=== PATIENT | male | born 1965 | race Caucasian/White ===

== ENCOUNTER 2019-05-04 03:35 | Observation (INO) | payer SELFPAY ==
[2019-05-04 04:30] LABS: ABSOLUTE BASOPHILS # (AUTO) 0.1 10^3/uL (0.0-0.2); ABSOLUTE EOSINOPHILS # (AUTO) 0.3 10^3/uL (0.0-0.6); ABSOLUTE LYMPHOCYTES (AUTO) 1.7 10^3/uL (0.5-4.7); ABSOLUTE MONOCYTES (AUTO) 0.6 10^3/uL (0.1-1.4); ABSOLUTE NEUT (AUTO) 10.3 10^3/uL (1.7-8.2); BASOPHILS % (AUTO) 0.7 % (0-2); EOSINOPHILS % (AUTO) 2.6 % (0-6); HEMATOCRIT 40.5 % (37.9-51.0); LYMPHOCYTES % (AUTO) 13.4 % (13-45); MEAN CORPUSCULAR HEMOGLOBIN 30.2 pg (27.0-33.4); MEAN CORPUSCULAR HGB CONC 34.6 g/dL (32.0-36.0); MEAN CORPUSCULAR VOLUME 87 fl (80-97); MONOCYTES % (AUTO) 4.3 % (3-13); PLATELET COUNT 333 10^3/uL (150-450); RED BLOOD COUNT 4.64 10^6/uL (4.35-5.55); RED CELL DISTRIBUTION WIDTH 13.2 % (11.5-14.0); TOTAL CELLS COUNTED % (AUTO) 100 %
--- NOTE | 2019-05-04 04:43 | RADIOLOGY REPORT (SQ) ---
CLINICAL HISTORY: chest burning COMPARISON: None. TECHNIQUE: XR CHEST 2 VIEWS 05/04/2019 12:00 AM COUNSELING PSYCHOLOGIST FINDINGS: Cardiac silhouette is normal in size. Lungs are clear without consolidation, atelectasis, mass or edema. There is no pleural effusion. There is no pneumothorax. There are no acute osseous findings. IMPRESSION: Clear lungs.
[2019-05-04] MEDS ORDERED: LIDOCAINE 2% VISCOUS SOLN 15 ML UDCUP PO ONE (04:51)
[2019-05-04] MEDS ORDERED: MAG HYDROX/AL HYDROX/SIMETH SUSP 30 ML UDCUP PO ONE (04:51)
[2019-05-04] MEDS ORDERED: METOCLOPRAMIDE HCL ORAL SOLN 10 MG/10 ML UDCUP PO ONE (04:51)
[2019-05-04 04:53] LABS: ALBUMIN 4.3 g/dL (3.5-5.0); ALKALINE PHOSPHATASE 68 U/L (38-126); ANION GAP 8 (5-19); ASPARTATE AMINO TRANSFERASE 27 U/L (17-59); BILIRUBIN,DIRECT 0.3 mg/dL (0.0-0.4); BILIRUBIN,TOTAL 0.3 mg/dL (0.2-1.3); BLOOD UREA NITROGEN 20 mg/dL (7-20); CALCIUM 9.5 mg/dL (8.4-10.2); CARBON DIOXIDE 31 mmol/L (22-30); CHLORIDE 104 mmol/L (98-107); CREATINE KINASE 83 U/L (55-170); GLUCOSE 106 mg/dL (75-110); POTASSIUM 4.4 mmol/L (3.6-5.0); TOTAL PROTEIN 7.8 g/dL (6.3-8.2)
--- NOTE | 2019-05-04 04:53 | ER Document Report ---
ED GI/ - General Chief Complaint: Epigastric Pain Stated Complaint: CHEST AND STOMACH PAIN Time Seen by Provider: 05/04/19 04:45 Notes: Patient is a 53-year-old male that comes emergency department for chief complaint of burning in his epigastric area, he states that he cannot get comfortable, he states that he is frequently belching, has trouble lying down. He denies vomiting, chest pain, difficulty breathing, fever, injury. He denies recent alcohol within the past month, he does state that he had similar symptoms a few days ago but this resolved with Gas-X and baking soda mixed with water, he tried this again tonight and it did not resolve yet so he came in for evaluation. He denies any surgeries, he takes no daily medications, he smokes. He reports infrequent alcohol and denies recreational drugs. He states his father had CAD when asked. TRAVEL OUTSIDE OF THE [place] IN LAST 30 DAYS: No - Related Data Allergies/Adverse Reactions: Sulfa (Sulfonamide Antibiotics) Allergy (Verified 03/24/16 13:36) Home Medications: generic nexium. advil cold and sinus Past Medical History - General Information source: Patient - Social History Smoking Status: Current Every Day Smoker Frequency of alcohol use: Occasional Drug Abuse: None Lives with: Family Family History: Reviewed & Not Pertinent Patient has suicidal ideation: No Patient has homicidal ideation: No - Immunizations Immunizations up to date: Yes Hx Diphtheria, Pertussis, Tetanus Vaccination: Yes Review of Systems - Review of Systems Constitutional: No symptoms reported EENT: No symptoms reported Cardiovascular: No symptoms reported Respiratory: No symptoms reported Gastrointestinal: See HPI Genitourinary: No symptoms reported Male Genitourinary: No symptoms reported Musculoskeletal: No symptoms reported Skin: No symptoms reported Hematologic/Lymphatic: No symptoms reported Neurological/Psychological: No symptoms reported Physical Exam - Vital signs Vitals: Temp Pulse Resp BP Pulse Ox 97.5 F 69 14 151/83 H 98 05/04/19 03:39 05/04/19 03:39 05/04/19 03:39 05/04/19 03:39 05/04/19 03:39 - Notes Notes: GENERAL: Patient alert, cooperative, pacing, appears to be in pain HEAD: Normocephalic, atraumatic. EYES: Pupils equal, round, and reactive to light. Extraocular movements intact. ENT: Oral mucosa moist, tongue midline. Oropharynx unremarkable. Airway patent. LUNGS: Clear to auscultation bilaterally, no wheezes, rales, or rhonchi. No respiratory distress. HEART: Regular rate and rhythm. No murmur ABDOMEN: Tender in the upper abdomen generally, difficult to examine initially because of patient compliance GENITOURINARY: Deferred EXTREMITIES: Moves all 4 extremities spontaneously. No edema, normal radial and dorsalis pedis pulses bilaterally. No cyanosis. BACK: no cervical, thoracic, lumbar midline tenderness. No saddle anesthesia, normal distal neurovascular exam. Moves all extremities in full range of motion. NEUROLOGICAL: Alert and oriented x3. Normal speech. Cranial nerves II through XII grossly intact. PSYCH: Restless SKIN: Warm, dry, normal turgor. No rashes or lesions noted. Course - Re-evaluation Re-evalutation: Patient pacing, stating he cannot lie down. Difficult to examine his abdomen but he does not appear to be in severe distress. Vital signs generally unremarkable. Chest x-ray, EKG, troponin, CBC, chemistry, lipase reviewed from triage. This shows mild leukocytosis, otherwise generally unremarkable. Patient has not improved after GI cocktail. Patient more compliant now, lay down, has definite tenderness in the right upper quadrant and epigastric area. Given pain medication, kept n.p.o., ultrasound will be performed. Ultrasound concerning for acute cholecystitis. Discussed with patient, started on Zosyn, I called and spoke with Dr. Álvarez who states he will evaluate the patient. Dr. Álvarez evaluated the patient and is accepting to the surgical service. - Vital Signs Vital signs: Temp Pulse Resp BP Pulse Ox 98.0 F 69 14 151/83 H 99 05/04/19 06:44 05/04/19 06:44 05/04/19 03:39 05/04/19 03:39 05/04/19 06:44 - Laboratory Result Diagrams: 05/04/19 04:15 05/04/19 04:15 Laboratory results interpreted by me: 05/04/19 05/04/19 04:15 04:15 WBC 13.0 H Absolute Neuts (auto) 10.3 H Seg Neutrophils % 79.0 H Carbon Dioxide 31 H Discharge - Discharge Clinical Impression: Cholelithiasis and acute cholecystitis without obstruction Condition: Stable Disposition: ADMITTED OBSERVATION Admitting Provider: Surgicalist Unit Admitted: Surgical Floor
[2019-05-04 05:04] LABS: CREATINE KINASE MB 0.53 ng/mL (<4.55)
[2019-05-04 05:07] LABS: TROPONIN I < 0.012 ng/mL
[2019-05-04] MEDS ORDERED: MORPHINE SULFATE 10 MG/ML INJ IV ONE (05:49)
[2019-05-04] MEDS ORDERED: HYDROMORPHONE HCL INJ/PF 2 MG/ML AMPULE IV ONE ×2 (06:36→08:45)
--- NOTE | 2019-05-04 07:02 | RADIOLOGY REPORT (SQ) ---
EXAM DESCRIPTION: US ABDOMEN LIMITED COMPLETED DATE/TME: 05/04/2019 05:49 CLINICAL HISTORY: 53 years, Male, RUQ and epigastric pain COMPARISON: 02/21/2016 TECHNIQUE: Grayscale and color images of the abdomen were obtained LIMITATIONS: None. FINDINGS: The visualized portions of the pancreas and abdominal aorta are unremarkable. The liver is normal in size, shape, and echotexture. The liver measures 13.9 cm. The main portal vein demonstrates normal hepatopedal flow. Cholelithiasis with sludge is noted. Gallbladder wall is thickened measuring up to 5 mm in thickness. A positive sonographic Jim sign was elicited. The common bile duct measures up to 6 mm in diameter. The right kidney measures 11.2 x 5.7 x 5.8 cm. There is a 3.8 x 2.9 x 2.7 cm cyst. IMPRESSION: Cholelithiasis with gallbladder wall thickening and a positive sonographic Jim sign, concerning for acute cholecystitis. copyright 2010 [employer]- All Rights Reserved
[2019-05-04] MEDS ORDERED: PIPERACILLIN/TAZOBACTAM 3.375 GM VIAL IV ONE ×2 (07:06→09:10)
[2019-05-04] MEDS ORDERED: NORMAL SALINE 1000 ML 1,000 ML IV ONE (07:06)
--- NOTE | 2019-05-04 08:29 | PDOC H&P ---
History of Present Illness Admission Date/PCP: May 04, 2019 Patient complains of: Epigastric and right upper quadrant pain History of Present Illness: RM MOSS is a 53 year old male, healthy, smoker, with a 10-hour history of epigastric and right upper quadrant pain, intense nausea, who presents emergency room with above symptoms this morning early. An ultrasound of the gallbladder was done revealing cholelithiasis and thickening of the gallbladder wall as per acute cholecystitis. His blood work reveals a mild leukocytosis of 13,000. Past Medical History Cardiac Medical History: Reports: Hypertension GI Medical History: Reports: Gastroesophageal Reflux Disease Social History Smoking Status: Current Every Day Smoker Family History Family History: Reviewed & Not Pertinent Parental Family History Reviewed: No Children Family History Reviewed: No Sibling(s) Family History Reviewed.: No Medication/Allergy Home Medications: Cyclobenzaprine HCl [Flexeril 10 Mg Tablet] 10 mg PO TIDP PRN #20 tablet 10/02/15 Oxycodone HCl/Acetaminophen [Percocet 10-325 Mg Tablet] 1 each PO Q4HP PRN #15 tablet 10/02/15 Oxycodone HCl/Acetaminophen [Percocet 5-325 mg Tablet] 1 - 2 tab PO Q4H PRN #15 tablet 03/24/16 Allergies/Adverse Reactions: Sulfa (Sulfonamide Antibiotics) Allergy (Verified 03/24/16 13:36) Physical Exam Vital Signs: Temp Pulse Resp BP Pulse Ox 98.0 F 69 14 151/83 H 99 05/04/19 06:44 05/04/19 06:44 05/04/19 03:39 05/04/19 03:39 05/04/19 06:44 Intake & Output 05/03/19 05/04/19 05/05/19 06:59 06:59 06:59 Weight 78.2 kg General appearance: PRESENT: mild distress, thin, well-developed Head exam: PRESENT: atraumatic Eye exam: PRESENT: EOMI, PERRLA Mouth exam: PRESENT: dry mucosa, neck supple, tongue midline Teeth exam: PRESENT: poor dentation Neck exam: PRESENT: full ROM Respiratory exam: PRESENT: clear to auscultation gabriela Cardiovascular exam: PRESENT: RRR GI/Abdominal exam: PRESENT: hypoactive bowel sounds, Jim's sign - Positive, soft, tenderness - Right upper quadrant with guarding Rectal exam: PRESENT: deferred Extremities exam: PRESENT: full ROM Musculoskeletal exam: PRESENT: full ROM Neurological exam: PRESENT: alert, awake, oriented to time, CN II-XII grossly intact Psychiatric exam: PRESENT: appropriate affect Skin exam: PRESENT: warm Results Laboratory Results: 05/04/19 04:15 05/04/19 04:15 05/04/19 05/04/19 05/04/19 04:15 04:15 04:15 WBC 13.0 H RBC 4.64 Hgb 14.0 Hct 40.5 MCV 87 MCH 30.2 MCHC 34.6 RDW 13.2 Plt Count 333 Seg Neutrophils % 79.0 H Sodium 143.1 Potassium 4.4 Chloride 104 Carbon Dioxide 31 H Anion Gap 8 BUN 20 Creatinine 1.00 Est GFR ( Amer) > 60 Glucose 106 Calcium 9.5 Total Bilirubin 0.3 AST 27 Alkaline Phosphatase 68 Total Protein 7.8 Albumin 4.3 Lipase 131.7 05/04/19 05/04/19 04:15 04:15 Creatine Kinase 83 CK-MB (CK-2) 0.53 Troponin I < 0.012 Impressions: Chest X-Ray 05/04/19 00:00 IMPRESSION: Clear lungs. Abdomen Ultrasound 05/04/19 05:49 IMPRESSION: Cholelithiasis with gallbladder wall thickening and a positive sonographic Jim sign, concerning for acute cholecystitis. copyright 2011 [employer]- All Rights Reserved Assessment & Plan - Diagnosis (1) Cholelithiasis and acute cholecystitis without obstruction Is this a current diagnosis for this admission?: Yes - Plan Summary Plan Summary: Assessment: Epigastric and right upper quadrant pain Blood work shows slight elevated white blood cell count 13,000 Normal complete metabolic profile Ultrasound of the abdomen demonstrates thickening of the gallbladder wall with stones as per acute cholecystitis with cholelithiasis Negative past medical history Plan: N.p.o. IV fluid bolus normal saline 1 L plus normal saline 150 m/h IV antibiotics Zosyn 3.375 g IV piggyback x1 Plan laparoscopically cystectomy, possible open, possible cholangiogram today: Procedure, risks, benefits, complications, including bleeding from the liver or injury of the bile ducts which may require transfer to tertiary center for open repair have been discussed with the patient, his questions were fully answered to his satisfaction, and he decides to proceed
--- NOTE | 2019-05-04 08:40 | EKG REPORT ---
SEVERITY:- NORMAL ECG - SINUS RHYTHM : Confirmed by: Dago Harry 04-May-2019 08:39:00
[2019-05-04] MEDS ORDERED: ONDANSETRON 4 MG TAB.RAPDIS PO PRN ×3 (09:06→14:30)
[2019-05-04] MEDS ORDERED: NORMAL SALINE 1000 ML 1,000 ML IV PRN ×2 (09:06→10:55)
[2019-05-04] MEDS ORDERED: DEXTROSE 40% GEL 15 GM TUBE PO PRN ×2 (09:06)
[2019-05-04] MEDS ORDERED: DEXTROSE 50%-WATER 25 GM/50 ML DISP.SYRIN IV PRN ×2 (09:06)
[2019-05-04] MEDS ORDERED: GLUCAGON,HUMAN RECOMB 1 MG INJ SUBCUT PRN (09:06)
[2019-05-04] MEDS ORDERED: MORPHINE SULFATE 10 MG/ML INJ IV PRN ×2 (09:06→09:54)
[2019-05-04] MEDS ORDERED: MIDAZOLAM 2 MG/2 ML INJ ONE (09:16)
[2019-05-04] MEDS ORDERED: PROPOFOL INJ 200 MG/20 ML VIAL IV ONE (09:16)
[2019-05-04] MEDS ORDERED: FENTANYL CITRATE INJ/PF 100 MCG/2 ML AMPUL ONE ×2 (09:16→11:12)
[2019-05-04] MEDS ORDERED: BUPIVACAINE HCL 0.25 % INJ/PF (2.5 MG/1 ML) 30 ML VIAL ONE (09:17)
[2019-05-04] MEDS ORDERED: BUPIVACAINE HCL 0.5 % INJ/PF 30 ML SDV ONE (09:18)
[2019-05-04] MEDS ORDERED: HYDROMORPHONE HCL INJ/PF 2 MG/ML AMPULE ONE (09:25)
[2019-05-04] MEDS ORDERED: BUPIVACAINE HCL 0.5 % INJ/PF 30 ML SDV INJ ONE (09:53)
[2019-05-04] MEDS ORDERED: ONDANSETRON HCL INJ/PF 4 MG/2 ML SDV IV PRN (09:54)
[2019-05-04] MEDS ORDERED: MEPERIDINE HCL/PF INJ 25 MG/1 ML DISP.SYRIN IV PRN (09:54)
[2019-05-04] MEDS ORDERED: DIPHENHYDRAMINE HCL 50 MG/ML VIAL IV PRN (09:54)
[2019-05-04] MEDS ORDERED: FENTANYL CITRATE INJ/PF 100 MCG/2 ML AMPUL IV PRN ×2 (09:54)
--- NOTE | 2019-05-04 10:51 | Operative Report ---
Nonrecallable Operative Report DATE OF SURGERY: 05/04/19 PREOPERATIVE DIAGNOSIS: Acute cholecystitis with cholelithiasis POSTOPERATIVE DIAGNOSIS: Same OPERATION: Laparoscopic cholecystectomy SURGEON: DUSTY MYRICK ANESTHESIA: Local - 20 mL's half percent Marcaine with epinephrine TISSUE REMOVED OR ALTERED: Gallbladder COMPLICATIONS: None ESTIMATED BLOOD LOSS: Less than 5 mL INTRAOPERATIVE FINDINGS: Inflamed acutely gallbladder with cholelithiasis PROCEDURE: The procedure was done in the operating room. The patient was placed in a supine position, general anesthesia induced by endotracheal intubation, the abdomen was prepped and draped in usual fashion. An incision was made just above the umbilicus with a #15 blade, the skin was tented with towel clips and a 5 mm port with Optiview adapter and scope was inserted through the abdominal wall into the peritoneal cavity. CO2 pneumoperitoneum was obtained, under direct visualization a 12 mm port was inserted in the epigastrium and two 5 mm ports were placed in the right lateral quadrant of the abdomen under direct visualization. The patient was placed in steep reverse Trendelenburg position, the right side was elevated, the gallbladder fundus was grasped and the gallbladder was elevated and retroflexed; the cystic neck was identified, grasped, and pulled anterior to the patient's right with exposure of the triangle of [place]. The critical view of safety was obtained by dividing the peritoneal attachments of the gallbladder body both medially and laterally with a hook cautery. When this was accomplished, the hook cautery dissection was continued toward the cystic neck. An opening was then obtained posterior to the cystic duct which was enlarged with a peanut dissector and with a right angle dissector. Once the critical view of safety was obtained, the cystic duct was carefully dissected with a hook cautery and a space was developed between the cystic duct and cystic artery with a right angle dissector. Both were then double clipped proximally and distally and divided with scissors. The gallbladder was dissected from the liver bed using hook cautery at high settings, and extracted from the peritoneal cavity with an Endobag through the epigastric port. The pneumoperitoneum was then re-established, the gallbladder fossa was examined and found to be free from blood or bile staining. The right upper quadrant was then irrigated with normal saline until clear. The epigastric fascial defect was closed with a [id number] 0 Vicryl suture, placed with a fascia closure device under direct visualization, and left untied. All instruments were removed, the CO2 pneumoperitoneum was released, and all the ports were removed. The epigastric fascial defect was closed with the previously placed [id number] 0 Vicryl suture, all skin incisions were closed with a 4-0 PDS running subcuticular suture, and Dermabond was applied. The patient tolerated the procedure well, was extubated, and transferred to the recovery room in satisfactory conditions.
[2019-05-04] MEDS ORDERED: DEXAMETHASONE SOD PHOSPHATE INJ 4 MG/1 ML VIAL ONE (10:58)
[2019-05-04] MEDS ORDERED: ONDANSETRON HCL INJ/PF 4 MG/2 ML SDV ONE (10:58)
[2019-05-04] MEDS: FENTANYL CITRATE INJ/PF 100 MCG/2 ML AMPUL IV PRN ×2 (11:15→11:29)
[2019-05-04] MEDS ORDERED: ROCURONIUM BROMIDE INJ 50 MG/5 ML VIAL IV ONE (12:35)
[2019-05-04] MEDS: KETOROLAC TROMETHAMINE INJ/PF 30 MG/1 ML SDV IV SCH ×3 (13:10→23:27)
[2019-05-04] MEDS: ACETAMINOPHEN 1,000 MG/100 ML RTUPB IV SCH ×2 (18:29→23:28)
[2019-05-04] MEDS: FAMOTIDINE INJ/PF 20 MG/2 ML SDV IV SCH ×2 (18:29→21:58)
[2019-05-04] MEDS: PIPERACILLIN SODIUM/TAZOBACTAM 3.375 GM in NORMAL SALINE 100 ML IV SCH ×2 (19:00→23:50)
[2019-05-05] MEDS: MORPHINE SULFATE 10 MG/ML INJ IV PRN ×3 (01:24→08:29)
[2019-05-05 01:33] LABS: APPEARANCE,URINE CLEAR; BILIRUBIN,URINE NEGATIVE (NEGATIVE); COLOR,URINE YELLOW; GLUCOSE, URINE NEGATIVE (NEGATIVE); KETONES,URINE NEGATIVE (NEGATIVE); LEUKOCYTE ESTERASE,URINE NEGATIVE (NEGATIVE); NITRITE,URINE NEGATIVE (NEGATIVE); PROTEIN,URINE NEGATIVE (NEGATIVE); URINE SPECIFIC GRAVITY 1.026; UROBILINOGEN,URINE NEGATIVE mg/dL (<2.0)
[2019-05-05] MEDS: KETOROLAC TROMETHAMINE INJ/PF 30 MG/1 ML SDV IV SCH (05:21)
[2019-05-05] MEDS: ACETAMINOPHEN 1,000 MG/100 ML RTUPB IV SCH (05:21)
[2019-05-05 05:25] LABS: ABSOLUTE BASOPHILS # (AUTO) 0.1 10^3/uL (0.0-0.2); ABSOLUTE LYMPHOCYTES (AUTO) 1.8 10^3/uL (0.5-4.7); ABSOLUTE MONOCYTES (AUTO) 0.7 10^3/uL (0.1-1.4); ABSOLUTE NEUT (AUTO) 7.2 10^3/uL (1.7-8.2); BASOPHILS % (AUTO) 0.7 % (0-2); EOSINOPHILS % (AUTO) 0.1 % (0-6); HEMATOCRIT 30.8 % (37.9-51.0); LYMPHOCYTES % (AUTO) 18.5 % (13-45); MEAN CORPUSCULAR HGB CONC 35.2 g/dL (32.0-36.0); MEAN CORPUSCULAR VOLUME 88 fl (80-97); MONOCYTES % (AUTO) 6.7 % (3-13); PLATELET COUNT 232 10^3/uL (150-450); RED BLOOD COUNT 3.51 10^6/uL (4.35-5.55); TOTAL CELLS COUNTED % (AUTO) 100 %; WHITE BLOOD COUNT 9.7 10^3/uL (4.0-10.5)
[2019-05-05 05:26] LABS: HEMOGLOBIN 10.9 g/dL (13.5-17.0)
[2019-05-05 05:38] LABS: ALBUMIN 3.3 g/dL (3.5-5.0); ALKALINE PHOSPHATASE 61 U/L (38-126); ANION GAP 8 (5-19); ASPARTATE AMINO TRANSFERASE 162 U/L (17-59); BILIRUBIN,DIRECT 0.3 mg/dL (0.0-0.4); BILIRUBIN,TOTAL 0.7 mg/dL (0.2-1.3); BLOOD UREA NITROGEN 17 mg/dL (7-20); CALCIUM 8.6 mg/dL (8.4-10.2); CARBON DIOXIDE 25 mmol/L (22-30); CHLORIDE 105 mmol/L (98-107); GLUCOSE 101 mg/dL (75-110); POTASSIUM 4.2 mmol/L (3.6-5.0); TOTAL PROTEIN 6.4 g/dL (6.3-8.2)
[2019-05-05] MEDS: PIPERACILLIN SODIUM/TAZOBACTAM 3.375 GM in NORMAL SALINE 100 ML IV SCH (05:47)
[2019-05-05] MEDS: FAMOTIDINE INJ/PF 20 MG/2 ML SDV IV SCH (09:09)
[2019-05-05] MEDS ORDERED: ENOXAPARIN SODIUM INJ 40 MG/0.4 ML DISP.SYRIN SUBCUT SCH (10:00)
--- NOTE | 2019-05-05 10:21 | PDOC DISCHARGE SUMMARY ---
General - Admit/Disc Date/PCP Admission Date/Primary Care Provider: 05/04/19 08:33 Discharge Date: 05/05/19 - Discharge Diagnosis Final Diagnosis: Cholecystitis with cholelithiasis - Assessment Summary: The patient is a healthy 53-year-old male who presented to the emergency room complaining of right upper quadrant pain and epigastric pain. His blood work presented with a slight leukocytosis of 13,000, his liver profile was normal, and the ultrasound of the gallbladder was done revealing cholecystitis with cholelithiasis. The patient was taken to surgery on the same day and underwent an uneventful laparoscopic cholecystectomy. His postop course was unremarkable, his vital signs remained stable, the patient tolerated p.o. well, his blood work was within normal limits postoperatively. On the day of discharge, the patient had no complaints, vital signs were stable, his abdomen was soft and all incisions are clean, dry, and intact. His blood work was within normal limits. Discharge orders: Home today Do not resume amoxicillin Tylenol and/or Aleve as needed for pain Activities as tolerated without restrictions No wound care needed Diet Follow-up with the surgery office in 2 weeks Shower only for 2 weeks, afterward the patient can bathe - Additional Information Resuscitation Status: Full Code Discharge Activity: Activity As Tolerated, No tub bath - For 2 weeks, the patient can shower in the meantime, Other - No activity restrictions Referrals: [facility] [Provider Group] (2/3 S/P PEPITO PICKARD ) History of Present Illiness History of Present Illness: RM MOSS is a 53 year old male, healthy, smoker, with a 10-hour history of epigastric and right upper quadrant pain, intense nausea, who presents emergency room with above symptoms this morning early. An ultrasound of the gallbladder was done revealing cholelithiasis and thickening of the gallbladder wall as per acute cholecystitis. His blood work reveals a mild leukocytosis of 13,000. Physical Exam Vital Signs: Temp Pulse Resp BP Pulse Ox 97.5 F 59 L 17 92/54 L 98 05/04/19 23:37 05/04/19 23:37 05/04/19 23:37 05/04/19 23:37 05/04/19 23:37 Intake & Output 05/04/19 05/05/19 05/06/19 06:59 06:59 06:59 Intake Total 4150 Output Total 15 Balance 4135 Weight 78.2 kg 83.3 kg Results Laboratory Results: WBC 9.7 10^3/uL (4.0-10.5) 05/05/19 04:25 RBC 3.51 10^6/uL (4.35-5.55) L 05/05/19 04:25 Hgb 10.9 g/dL (13.5-17.0) L D 05/05/19 04:25 Hct 30.8 % (37.9-51.0) L 05/05/19 04:25 MCV 88 fl (80-97) 05/05/19 04:25 MCH 31.0 pg (27.0-33.4) 05/05/19 04:25 MCHC 35.2 g/dL (32.0-36.0) 05/05/19 04:25 RDW 13.0 % (11.5-14.0) 05/05/19 04:25 Plt Count 232 10^3/uL (150-450) 05/05/19 04:25 Lymph % (Auto) 18.5 % (13-45) 05/05/19 04:25 [place] % (Auto) 6.7 % (3-13) 05/05/19 04:25 Eos % (Auto) 0.1 % (0-6) 05/05/19 04:25 Baso % (Auto) 0.7 % (0-2) 05/05/19 04:25 Absolute Neuts (auto) 7.2 10^3/uL (1.7-8.2) 05/05/19 04:25 Absolute Lymphs (auto) 1.8 10^3/uL (0.5-4.7) 05/05/19 04:25 Absolute Monos (auto) 0.7 10^3/uL (0.1-1.4) 05/05/19 04:25 Absolute Eos (auto) 0.0 10^3/uL (0.0-0.6) 05/05/19 04:25 Absolute Basos (auto) 0.1 10^3/uL (0.0-0.2) 05/05/19 04:25 Seg Neutrophils % 74.0 % (42-78) 05/05/19 04:25 Sodium 137.6 mmol/L (137-145) 05/05/19 04:25 Potassium 4.2 mmol/L (3.6-5.0) 05/05/19 04:25 Chloride 105 mmol/L (98-107) 05/05/19 04:25 Carbon Dioxide 25 mmol/L (22-30) 05/05/19 04:25 Anion Gap 8 (5-19) 05/05/19 04:25 BUN 17 mg/dL (7-20) 05/05/19 04:25 Creatinine 1.16 mg/dL (0.52-1.25) 05/05/19 04:25 Est GFR ( Amer) > 60 (>60) 05/05/19 04:25 Est GFR (MDRD) Non-Af > 60 (>60) 05/05/19 04:25 Glucose 101 mg/dL (75-110) 05/05/19 04:25 Calcium 8.6 mg/dL (8.4-10.2) 05/05/19 04:25 Total Bilirubin 0.7 mg/dL (0.2-1.3) 05/05/19 04:25 Direct Bilirubin 0.3 mg/dL (0.0-0.4) 05/05/19 04:25 Neonat Total Bilirubin Not Reportable 05/05/19 04:25 Neonat Direct Bilirubin Not Reportable 05/05/19 04:25 Neonat Indirect Bili Not Reportable 05/05/19 04:25 AST 162 U/L (17-59) H 05/05/19 04:25 ALT 238 U/L (<50) 05/05/19 04:25 Alkaline Phosphatase 61 U/L (38-126) 05/05/19 04:25 Creatine Kinase 83 U/L (55-170) 05/04/19 04:15 CK-MB (CK-2) 0.53 ng/mL (<4.55) 05/04/19 04:15 Troponin I < 0.012 ng/mL 05/04/19 04:15 Total Protein 6.4 g/dL (6.3-8.2) 05/05/19 04:25 Albumin 3.3 g/dL (3.5-5.0) L 05/05/19 04:25 Lipase 131.7 U/L (23-300) 05/04/19 04:15 Urine Color YELLOW 05/05/19 01:00 Urine Appearance CLEAR 05/05/19 01:00 Urine pH 6.0 (5.0-9.0) 05/05/19 01:00 Ur Specific [place] 1.026 05/05/19 01:00 Urine Protein NEGATIVE mg/dL (NEGATIVE) 05/05/19 01:00 Urine Glucose (UA) NEGATIVE mg/dL (NEGATIVE) 05/05/19 01:00 Urine Ketones NEGATIVE mg/dL (NEGATIVE) 05/05/19 01:00 Urine Blood NEGATIVE (NEGATIVE) 05/05/19 01:00 Urine Nitrite NEGATIVE (NEGATIVE) 05/05/19 01:00 Urine Bilirubin NEGATIVE (NEGATIVE) 05/05/19 01:00 Urine Urobilinogen NEGATIVE mg/dL (<2.0) 05/05/19 01:00 Ur Leukocyte Esterase NEGATIVE (NEGATIVE) 05/05/19 01:00 Urine WBC (Auto) 0 /HPF 05/05/19 01:00 Urine RBC (Auto) 0 /HPF 05/05/19 01:00 Urine Mucus (Auto) RARE /LPF 05/05/19 01:00 Urine Ascorbic Acid NEGATIVE (NEGATIVE) 05/05/19 01:00 05/04/19 04:15 CK-MB (CK-2) 0.53 Troponin I < 0.012 Impressions: Chest X-Ray 05/04/19 00:00 IMPRESSION: Clear lungs. Abdomen Ultrasound 05/04/19 05:49 IMPRESSION: Cholelithiasis with gallbladder wall thickening and a positive sonographic Jim sign, concerning for acute cholecystitis. copyright 2011 [employer]- All Rights Reserved
[2019-05-05 10:48] VITALS: BP 121/72
== END 2019-05-05 11:09 | disposition home or self-care (01) ==
LOC: ER 03:35 → EH 08:33 → 5 12:29
PROVIDERS: ADMIT Surgery; ATTEND Surgery
DX: K80.10 Calculus of gallbladder with chronic cholecystitis without obstruction (principal); F17.200 Nicotine dependence, unspecified, uncomplicated; K21.9 Gastro-esophageal reflux disease without esophagitis; Z82.49 Family history of ischemic heart disease and other diseases of the circulatory system; Z79.899 Other long term (current) drug therapy; Z86.79 Personal history of other diseases of the circulatory system
CPT/HCPCS: 93005; 99285; 96361; 96375; 96365; 36415 ×2; 82553; 82550; 83690; 85025 ×2; 80053 ×2; 81001; 84484; 88304 ×2; 71046; 93010; 76705; 00790; 47562; G0378 ×3; J2250; J3490 ×3; J1100; J3010; J1885 ×2; J2270 ×2; J1650; J1170; J2405; J7050 ×2; J7030; J2704; S0028 ×2; J2543 ×2; J0131 ×2; 790